=== PATIENT | female | born 1965 | race Caucasian/White ===

== ENCOUNTER 2019-04-15 13:32 | Emergency (ER) | payer MEDICAID, OTHER ==
[~2019-04-15] VITALS: Ht 160 cm; Wt 65.0 kg
[2019-04-15] MEDS ORDERED: MORPHINE SULFATE 4 MG/ML CPJ (NOT FOR IM USE) IV STA (14:33)
[2019-04-15] MEDS ORDERED: KETOROLAC 30MG/ML VIAL IV STA (14:33)
[2019-04-15] MEDS ORDERED: ONDANSETRON HCL 4MG/2ML INJ IV STA (14:33)
[2019-04-15] MEDS ORDERED: SODIUM CHLORIDE 0.9% 1,000 ML IV ONE ×2 (14:33)
[2019-04-15 15:44] LABS: *AMPHETAMINES SCREEN URINE NEGATIVE (NEGATIVE); *BARBITURATES SCREEN URINE NEGATIVE (NEGATIVE); *BENZODIAZEPINES SCREEN URINE NEGATIVE (NEGATIVE); *COCAINE SCREEN URINE NEGATIVE (NEGATIVE); METHADONE URINE SCREEN NEGATIVE (NEGATIVE); OPIATES URINE SCREEN NEGATIVE (NEGATIVE)
[2019-04-15 15:45] LABS: CANNABINOID URINE SCREEN PRESUMTIVE POSITIVE (NEGATIVE); PHENCYCLIDINE URINE SCREEN NEGATIVE (NEGATIVE)
[2019-04-15 17:58] VITALS: BP 109/53
== END 2019-04-15 17:06 | disposition home or self-care (01) ==
LOC: ER 13:32
DX: M25.511 Pain in right shoulder (principal); M25.551 Pain in right hip; G89.29 Other chronic pain; F12.10 Cannabis abuse, uncomplicated; I10 Essential (primary) hypertension; E11.9 Type 2 diabetes mellitus without complications; Z91.81 History of falling; Z86.73 Personal history of transient ischemic attack (TIA), and cerebral infarction without residual deficits
CPT/HCPCS: 73030; 73502; 80305; 96374; 96375; 99284; J1885; J2270; J2405; J7030